=== PATIENT | male | born 1995 | race Caucasian/White ===

== ENCOUNTER 2019-12-27 08:44 | Emergency (ER) | payer MEDICAID, SELFPAY ==
[2019-12-27 08:50] VITALS: BP 131/72; PULSE 79; RESP 16; TEMP 36.8; O2SAT 100
[2019-12-27] MEDS: Doxycycline Hyclate 100 MG CAP PO (09:50)
--- NOTE | 2019-12-29 00:09 | ED.GENADUL_ITS ---
Discharge Plan Disposition Patient Disposition: HOME Condition: Stable Discharge Details Chief Complaint: Recheck Clinical Impression: Visit for suture removal, Cellulitis Primary Care Provider: Nadeem David ED Provider: Sussy Kuo Home Meds and New Rx's Prescriptions: New doxycycline hyclate 100 mg capsule 100 mg PO BID Qty: 19 RF: 0 Discharge Instructions Instructions: Doxycycline (By mouth), Cellulitis (ED) Additional Instructions: Please return immediately to the emergency department if you develop any new or worsening symptoms, if your condition does not improve as expected, or if you become otherwise concerned. It is extremely important that you call soon as possible to make an appointment to be seen in follow-up for this visit by your primary care doctor. Referrals: Nadeem David MD [Primary Care Provider] - Discharge Data Discharge Date/Time-TO BE ENTERED AT DEPARTURE: 12/27/19 09:55 Medical Decision Making Mykel Alves is a 24 y/o man who presented to the emergency department for suture removal, wound redness after finger laceration repair 12/14. Exam shows erythema of proximal aspect of wound, otherwise normal exam. Concern for cellulitis. Exam/hx not c/w flexor tenosynovitis, sepsis, retained foreign body. osteomyelitis, septic joint. Plan for PO abx. Sutures removed by me without issue. I had a lengthy discussion with Patient regarding return to emergency department precautions, home care, and importance of outpatient follow-up. Pt verbalizes understanding of the plan and is amenable. Patient discharged to home with clear plan for outpatient follow-up. All questions were answered. Disposition decision was made weighing the risks and benefits of hospitalization versus outpatient treatment, the risk for further decompensation, and the patient's wishes. Medical Records Medical records reviewed: Yes I reviewed the patient's medical records. HPI General Mode of arrival: ambulatory . Date/Time Provider Initiated Documentation: 12/27/19 09:00 . Limitations to Documentation: no limitations . Information obtained by: patient, RN notes reviewed and old records reviewed . HPI Narrative: Mykel Alves is a 24 y/o man without reported h/o medical problems presenting to the emergency department for suture removal and wound check. Pt reports that he was seen 12/14 for laceration to dorsal aspect of right 4th digit, had six sutures placed. Pt reports that he had no problems with the wound, wound appeared to be healing well, until 2-3 days ago when he noticed proximal aspect of wound seemed red and had small amount of pus drainage. Pt notes that redness and intermittent drainage of pus has persisted but not increased significantly. No streaking. Pt reports full painless ROM of the digit. He denies any pain, fever, n/v/d, other rash, numbness, weakness. Pt reports that he feels otherwise very well and in his usual state of health. Has been eating and drinking as usual. Related Data Home Medications Medication Instructions Recorded Confirmed doxycycline hyclate 100 mg PO BID #19 cap 12/27/19 Previous Rx's Medication Instructions Recorded doxycycline hyclate 100 mg PO BID #19 cap 12/27/19 Allergies Allergy/AdvReac Type Severity Reaction Status Date / Time No Known Allergies Allergy Unverified 12/27/19 08:52 General Stated Complaint: Recheck RIC: 5 Review of Systems Narrative: Constitutional: denies fevers Eyes: denies eye pain ENT: denies ear pain, dental pain, sore throat Cardiovascular: denies chest pain Respiratory: denies SOB, cough GI: denies abdominal pain, vomiting : denies flank pain MSK: denies back pain, neck pain, arthralgias Skin: reports rash as per HPI Neuro: denies headaches, numbness, weakness PFSH Social History Smoking/Tobacco Use Status: Current-Occasional Tobacco Type: cigarettes Alcohol Intake: never Substance use type: does not use Exam Narrative Exam Narrative: Constitutional: well and [id number], pleasant, conversing normally HENT: head atraumatic/normocephalic/normal inspection, mucous membranes moist Eyes: conjunctiva normal, sclera normal, pupils 3mm b/l Neck: no stridor, normal ROM, trachea midline Resp: normal work of breathing Cardio: normal rate, normal rhythm Skin: warm, dry, normal color, no rash except as below Neuro: alert, not altered, grossly non-focal, normal tone Ext: no edema. right 4 digit with 2.5 cm laceration over dorsal aspect, crosses PIP, sutures in place, no dehiscence/edema/fluctuance/drainage, 1cm surrounding erythema proximal aspect of wound, full painless flexion and extension of the digit, radial pulses intact and symmetric, otherwise normal inspection, palpation, ROM of right digits/wrist/hand. Normal sensation. Psych: normal mood, normal affect, normal behavior Course Vital Signs Vital signs: Vital Signs Temperature 36.8 C 12/27/19 08:50 Pulse 79 12/27/19 08:50 Respiratory Rate 16 12/27/19 08:50 Blood Pressure 131/72 12/27/19 08:50 Pulse Oximetry 100 12/27/19 08:50 Temperature 36.8 C 12/27/19 08:50 Temperature Source Skin 12/27/19 08:50 Pulse 79 12/27/19 08:50 Respiratory Rate 16 12/27/19 08:50 Respiratory Effort Non-Labored 12/27/19 08:50 Blood Pressure 131/72 12/27/19 08:50 Blood Pressure Position Sitting 12/27/19 08:50 Pulse Oximetry 100 12/27/19 08:50 Oxygen Delivery Method Room Air 12/27/19 08:50 Oxygen Flow Rate 0 12/27/19 08:50 Pain Level 4 12/27/19 09:50
== END 2019-12-27 09:55 | disposition home or self-care (01) ==
PROVIDERS: Emergency Provider Student in an Organized Health Care Education/Training Program; PCP Family Medicine
DX: L03.011 Cellulitis of right finger (principal); S61.214D Laceration without foreign body of right ring finger without damage to nail, subsequent encounter; W26.8XXD Contact with other sharp object(s), not elsewhere classified, subsequent encounter; Z48.02 Encounter for removal of sutures
CPT/HCPCS: 29130; 99283; 99282